=== PATIENT | female | born 1990 | race American Indian/Alaskan Native ===

== ENCOUNTER 2019-03-31 14:36 | Emergency (ER) | payer SELFPAY ==
--- NOTE | 2019-03-31 14:50 | Emergency Department Report ---
Blank Doc - Documentation Documentation: This is a 28-year-old female that presents with acute on chronic intermittent headache x4 days. This initial assessment/diagnostic orders/clinical plan/treatment(s) is/are subject to change based on patient's health status, clinical progression and re- assessment by fellow clinical providers in the ED. Further treatment and workup at subsequent clinical providers discretion. Patient/guardians urged not to elope from the ED as their condition may be serious if not clinically assessed and managed. Initial orders include: 1- Patient sent to [facility] for further evaluation and treatment
[2019-03-31] MEDS ORDERED: REGLAN PO ONE (16:59)
[2019-03-31] MEDS ORDERED: TORADOL IM ONE (16:59)
[2019-03-31] MEDS ORDERED: BENADRYL PO ONE (16:59)
[2019-03-31 17:43] LABS: HCG Qualitative,Urine Positive (Negative)
--- NOTE | 2019-03-31 18:09 | Emergency Department Report ---
ED Headache HPI - General Chief Complaint: Headache Stated Complaint: DIZZINESS/HEADACHE/STOMACH CRAMPING Time Seen by Provider: 03/31/19 14:49 - History of Present Illness Initial Comments: Patient is a 28-year-old female who presents to the emergency room with complaints of a right, frontal headache that began 4 days ago. She has associated nausea and one episode of emesis. She has a past medical history of migraines and states this feels similar to her previous migraines. She states she's been taking Excedrin which resolves her headache for a couple of hours and then it returns. She denies any vision changes, numbness, weakness. States she was previously seeing a neurologist when she lived in a different state for her headaches. She denies any other past medical history. Allergies/Adverse Reactions: Allergies No Known Allergies Allergy (Unverified 03/31/19 14:38) ED Review of Systems ROS: Stated complaint: DIZZINESS/HEADACHE/STOMACH CRAMPING Other details as noted in HPI Comment: All other systems reviewed and negative ED Past Medical Hx - Past Medical History Previous Medical History?: Yes Additional medical history: Migraine - Surgical History Past Surgical History?: Yes Additional Surgical History: - Social History Smoking Status: Never Smoker Substance Use Type: None ED Physical Exam - General Limitations: No Limitations General appearance: alert, in no apparent distress - Head Head exam: Present: atraumatic, normocephalic - Eye Eye exam: Present: normal appearance, PERRL - ENT ENT exam: Present: mucous membranes moist - Neck Neck exam: Present: normal inspection, full ROM. Absent: tenderness, meningismus - Respiratory Respiratory exam: Present: normal lung sounds bilaterally. Absent: respiratory distress, wheezes, rales, rhonchi, stridor, chest wall tenderness, accessory m uscle use, decreased breath sounds, prolonged expiratory - Cardiovascular Cardiovascular Exam: Present: regular rate, normal rhythm, normal heart sounds. Absent: systolic murmur, diastolic murmur, rubs, gallop - GI/Abdominal GI/Abdominal exam: Present: soft. Absent: distended, tenderness, guarding, rebound, rigid - Neurological Exam Neurological exam: Present: alert, oriented X3, CN II-XII intact, normal gait. Absent: motor sensory deficit - Psychiatric Psychiatric exam: Present: normal affect, normal mood - Skin Skin exam: Present: warm, dry, intact ED Course Vital Signs 03/31/19 03/31/19 03/31/19 14:49 17:22 18:37 Temperature 98.4 F Pulse Rate 77 71 Respiratory 16 15 18 Rate Blood Pressure 112/66 Blood Pressure 102/64 [Right] O2 Sat by Pulse 100 100 Oximetry ED Medical Decision Making - Lab Data Lab Results 03/31/19 Range/Units 17:25 Urine HCG, Qual Positive A (Negative) - Medical Decision Making Patient is a 28-year-old female who presents to the emergency room with complain ts of a right, frontal headache that began 4 days ago. She has associated nausea and one episode of emesis. She has a past medical history of migraines and states this feels similar to her previous migraines. She states she's been taking Excedrin which resolves her headache for a couple of hours and then it returns. She denies any vision changes, numbness, weakness. States she was previously seeing a neurologist when she lived in a different state for her headaches. She denies any other past medical history. examination is normal, no neuro deficits, no neck stiffness, no meningeal signs, EOMI, PERRL. Ordered medications for patient's headache. Prior to giving medications patient told nurse that she doesn't know if she is or not. Urine was ordered and it is positive. pt was only given Reglan and Benadryl due to positive test. Went to the room to tell patient she was and offered US, she declined and states she made an appt with her [employer] and would like to follow up with them. her MAJANO has resolved s/p medications. advised pt that for future HAs she could take tylenol due to it being category B. advised to please follow up with your primary care doctor in the next 2-3 days. Please follow up with [employer] in the next 2-3 days. please begin to take vitamin [id number]. May take Tylenol for headache. Drink plenty of water. Return to the emergency room for any new or worsening symptoms. Critical care attestation.: If time is entered above; I have spent that time in minutes in the direct care of this critically ill patient, excluding procedure time. ED Disposition Clinical Impression: Headache Qualifiers: Headache type: unspecified Headache chronicity pattern: acute headache Intractability: not intractable Qualified Code(s): R51 - Headache Qualifiers: Weeks of gestation: unspecified Qualified Code(s): Z34.90 - Encounter for supervision of normal , unspecified, unspecified trimester Disposition: DC-01 TO HOME OR SELFCARE Is pt being admited?: No Does the pt Need Aspirin: No Condition: Stable Instructions: (ED), Migraine Headache (ED) Additional Instructions: Please follow up with your primary care doctor in the next 2-3 days. Please follow up with [employer] in the next 2-3 days. please begin to take vitamin [id number]. May take Tylenol for headache. Drink plenty of water. Return to the emergency room for any new or worsening symptoms. Referrals: SHAKEEL CHAUDHARY MD [Primary Care Provider] - 2-3 Days CARMELINA BERMUDEZ MD [Staff Physician] - 2-3 Days Time of Disposition: 18:27 Print Language: THAI
[2019-03-31 18:38] VITALS: BP 102/64
== END 2019-03-31 18:38 | disposition home or self-care (01) ==
LOC: ED 14:36
DX: G43.909 Migraine, unspecified, not intractable, without status migrainosus (principal); Z33.1 Pregnant state, incidental
CPT/HCPCS: 81025; 99283; J1885

== ENCOUNTER 2019-06-30 19:50 | Emergency (ER) | payer MEDICAID ==
[2019-06-30] MEDS ORDERED: ONDANSETRON 4 MG ODT TAB PO ONE (20:35)
[2019-06-30] MEDS ORDERED: ONDANSETRON 4 MG ODT TAB ONE (20:36)
--- NOTE | 2019-06-30 20:38 | Event Note ---
ED Screening Note Date of service: 06/30/19 Time: 20:33 ED Screening Note: 28 y o female presents to ed cc of hurtado, cp, dizziness x 1 day states 2 episodes of vomitting and nausea rates headache worse it has ever been. hx of migraine hurtado This initial assessment/diagnostic orders/clinical plan/treatment(s) is/are subject to change based on patients health status, clinical progression and re- assessment by fellow clinical providers in the ED. Further treatment and workup at subsequent clinical providers discretion. Patient/guardian urged not to elope from the ED as their condition may be serious if not clinically assessed and managed. Initial orders include: zofran in triage labs ua ct?
[2019-06-30 20:52] LABS: Basophils # (Auto) 0.1 K/mm3 (0.0-0.1); Basophils % (Auto) 0.8 % (0.0-1.8); Eosinophils # (Auto) 0.4 K/mm3 (0.0-0.4); Eosinophils % (Auto) 4.2 % (0.0-4.3); Hematocrit 36.9 % (30.3-42.9); Hemoglobin 12.9 gm/dl (10.1-14.3); Lymphocytes # (Auto) 3.9 K/mm3 (1.2-5.4); Lymphocytes % (Auto) 39.8 % (13.4-35.0); Mean Corpuscular HGB Conc 35 % (30-34); Mean Corpuscular Volume 89 fl (79-97); Monocytes # (Auto) 0.6 K/mm3 (0.0-0.8); Monocytes % (Auto) 6.2 % (0.0-7.3); Platelet Count 264 K/mm3 (140-440); Red Blood Count 4.16 M/mm3 (3.65-5.03); Red Cell Distribution Width 12.7 % (13.2-15.2)
[2019-06-30 21:03] LABS: INR 0.91 (0.87-1.13); Partial Thromboplastin Time 31.6 Sec. (24.2-36.6)
[2019-06-30 21:20] LABS: Alanine Aminotransferase 11 units/L (7-56); Albumin 4.6 g/dL (3.9-5); BUN/Creatinine Ratio 16; Blood Urea Nitrogen 11 mg/dL (7-17); Calcium 9.1 mg/dL (8.4-10.2); Hemolysis Index 1
[2019-06-30] MEDS ORDERED: SUMAtriptan SUCCINATE 6 MG/0.5 ML INJ SUB-Q ONE (22:54)
[2019-06-30] MEDS ORDERED: HYDROcodone/ACETAMINOPHEN 5-325 MG TAB PO ONE (22:54)
--- NOTE | 2019-06-30 22:56 | XRay Report ---
CHEST 2 VIEWS 2134 INDICATION / CLINICAL INFORMATION: Chest Pain COMPARISON: None available. FINDINGS: SUPPORT DEVICES: None. HEART / MEDIASTINUM: No significant abnormality. LUNGS / PLEURA: No significant pulmonary or pleural abnormality. No pneumothorax. ADDITIONAL FINDINGS: No significant additional findings. IMPRESSION: No significant acute abnormality Signer Name: Willy Clark MD Signed: 06/30/2019 10:52 PM Workstation Name: [id number]
[2019-06-30 23:05] VITALS: BP 132/98
--- NOTE | 2019-06-30 23:09 | Emergency Department Report ---
ED Headache HPI - General Chief Complaint: Chest Pain Stated Complaint: MIGRAINE/DIZZY Time Seen by Provider: 06/30/19 20:32 Source: patient, family, RN notes reviewed, old records Exam Limitations: no limitations - History of Present Illness Initial Comments: Millicent is a 28-year-old female with a 3 year history of migraine headaches. She recently moved to [place] in December. In her previous hometown, she was followed by neurologist. She was recommended to have MRI 1 year ago. However she developed . The headache evaluation was placed on hold. She has had several ED AND urgent care visits for headache. She normally receives a shot for in order to address the pain. For the past 2 weeks she has had constant right frontal temporal headache worse in the morning. She had one episode of emesis. She noted several seconds of squeezing chest pain. She has been taking Excedrin. She denies shortness of breath or leg pain. She was evaluated in urgent care one month ago for headache. Similar headache pattern was documented on ED encounter March of this year. Timing/Duration: other (2 weeks) Quality: moderate, throbbing Head Injury Location: frontal, temporal Recent Head Trauma: frequent headaches, chronic headaches Associated Symptoms: other (chest pain) Allergies/Adverse Reactions: Allergies No Known Allergies Allergy (Verified 06/30/19 20:36) Home Medications: Ambulatory Orders Promethazine [Phenergan] 25 mg PO Q6HR PRN #10 tab 06/30/19 SUMAtriptan SUCCINATE [Imitrex] 50 mg PO BID PRN #10 tab 06/30/19 ED Review of Systems ROS: Stated complaint: MIGRAINE/DIZZY Other details as noted in HPI Comment: All other systems reviewed and negative Constitutional: denies: diaphoresis, fever, malaise Respiratory: denies: cough Cardiovascular: chest pain, palpitations Neurological: headache ED Past Medical Hx - Past Medical History Previous Medical History?: No Additional medical history: Migraine - Surgical History Past Surgical History?: Yes Additional Surgical History: - Social History Smoking Status: Never Smoker Substance Use Type: None - Medications Home Medications: Home Medications Medication Instructions Recorded Confirmed Last Taken Type Promethazine [Phenergan] 25 mg PO Q6HR PRN #10 tab 06/30/19 Unknown Rx SUMAtriptan SUCCINATE [Imitrex] 50 mg PO BID PRN #10 tab 06/30/19 Unknown Rx ED Physical Exam - General Limitations: No Limitations General appearance: alert, in no apparent distress, other (appears comfortable, smiling, reading smartphone) - Head Head exam: Present: atraumatic, normocephalic - Eye Eye exam: Present: normal appearance - ENT ENT exam: Present: mucous membranes moist - Neck Neck exam: Present: normal inspection, full ROM. Absent: tenderness, meningismus - Respiratory Respiratory exam: Present: normal lung sounds bilaterally. Absent: respiratory distress, wheezes, rales, rhonchi - Cardiovascular Cardiovascular Exam: Present: regular rate, normal rhythm, normal heart sounds. Absent: systolic murmur, diastolic murmur, rubs, gallop - GI/Abdominal GI/Abdominal exam: Present: soft, normal bowel sounds. Absent: distended, tenderness, guarding, rebound - Extremities Exam Extremities exam: Present: normal inspection - Neurological Exam Neurological exam: Present: alert, oriented X3 - Psychiatric Psychiatric exam: Present: normal affect, normal mood - Skin Skin exam: Present: warm, dry, intact, normal color. Absent: rash ED Course Vital Signs 06/30/19 06/30/19 06/30/19 20:28 22:16 22:21 Temperature 98.2 F 98 F Pulse Rate 65 64 Respiratory 18 19 Rate Blood Pressure 116/69 123/78 O2 Sat by Pulse 99 100 Oximetry ED Medical Decision Making - Lab Data Result diagrams: 06/30/19 20:41 06/30/19 20:41 Laboratory Results - last 24 hr 06/30/19 06/30/19 06/30/19 20:41 20:41 20:41 WBC 9.9 RBC 4.16 Hgb 12.9 Hct 36.9 MCV 89 MCH 31 MCHC 35 H RDW 12.7 L Plt Count 264 Lymph % (Auto) 39.8 H [place] % (Auto) 6.2 Eos % (Auto) 4.2 Baso % (Auto) 0.8 Lymph # 3.9 [place] # 0.6 Eos # 0.4 Baso # 0.1 Seg Neutrophils % 49.0 Seg Neutrophils # 4.8 PT INR APTT Sodium 139 Potassium 3.7 Chloride 103.0 Carbon Dioxide 21 L Anion Gap 19 BUN 11 Creatinine 0.7 Estimated GFR > 60 BUN/Creatinine Ratio 16 Glucose 87 Calcium 9.1 Total Bilirubin 0.30 AST 14 ALT 11 Alkaline Phosphatase 47 Troponin T < 0.010 Total Protein 8.0 Albumin 4.6 Albumin/Globulin Ratio 1.4 HCG, Qual Negative 06/30/19 20:41 WBC RBC Hgb Hct MCV MCH MCHC RDW Plt Count Lymph % (Auto) [place] % (Auto) Eos % (Auto) Baso % (Auto) Lymph # [place] # Eos # Baso # Seg Neutrophils % Seg Neutrophils # PT 12.0 L INR 0.91 APTT 31.6 Sodium Potassium Chloride Carbon Dioxide Anion Gap BUN Creatinine Estimated GFR BUN/Creatinine Ratio Glucose Calcium Total Bilirubin AST ALT Alkaline Phosphatase Troponin T Total Protein Albumin Albumin/Globulin Ratio HCG, Qual - EKG Data EKG shows normal: sinus rhythm, axis, intervals, QRS complexes, ST-T waves Rate: normal - EKG Data Interpretation: normal EKG - Radiology Data Radiology results: report reviewed CXR: NAP 2 view according to radiology impression - Medical Decision Making Millicent is a 28 yo female with hx of headache for the past 3 years with previous neurologist. She has typical headache as documented in ED encounter 3 months ago. DDX: tumor, pseudotumor cerebri, I do not suspect dangerous headache such as ICH/SAH, meningitis, cavernous thrombosis. I strongly recommended evaluation by neurologist for other possible causes of headache beyond migraine. rx: imitrex, promethazine Critical care attestation.: If time is entered above; I have spent that time in minutes in the direct care of this critically ill patient, excluding procedure time. ED Disposition Clinical Impression: Recurrent headache Disposition: DC-01 TO HOME OR SELFCARE Is pt being admited?: No Does the pt Need Aspirin: No Condition: Stable Instructions: Acute Headache (ED) Additional Instructions: Please see neurologist next available appointment. Prescriptions: SUMAtriptan SUCCINATE [Imitrex] 50 mg PO BID PRN #10 tab PRN Reason: Headache Promethazine [Phenergan] 25 mg PO Q6HR PRN #10 tab PRN Reason: Nausea/headache Referrals: AKSHAT MITCHELL MD [Staff Physician] - 3-5 Days Forms: Work/School Release Form(ED)
== END 2019-06-30 23:41 | disposition home or self-care (01) ==
LOC: ED 19:50
DX: G43.909 Migraine, unspecified, not intractable, without status migrainosus (principal); Z79.899 Other long term (current) drug therapy
CPT/HCPCS: 36415; 71046; 80053; 84484; 84703; 85025; 85610; 85730; 93005; 93010; 96372; J3030; Q0162

== ENCOUNTER 2019-07-01 10:09 | Emergency (ER) | payer MEDICAID ==
--- NOTE | 2019-07-01 11:33 | Emergency Department Report ---
ED Headache HPI - General Chief Complaint: Headache Stated Complaint: MIGRAINE/DIZZINESS/LIGHT HEADED Time Seen by Provider: 07/01/19 11:02 Source: patient, RN notes reviewed Exam Limitations: no limitations - History of Present Illness Initial Comments: This is a 28-year-old after [place] female who presents to the emergency room with a migraine for 2 days. She states she was seen in the emergency room yesterday with the same symptoms. She was prescribed some medication but unable to feel that the pharmacy. Patient reports symptoms are worse than yesterday. She is currently experiencing frontal headache with nausea. She denies visual changes, cough, fever, shortness of breath, wheezing, chest pain, and vomiting. Timing/Duration: 24 hours Quality: severe Head Injury Location: frontal Recent Head Trauma: occasional headaches Modifying Factors: improves with: exposure to light Associated Symptoms: nausea/vomiting. denies: confusion, fatigue, facial pain, fever/chills, nasal congestion, sinus infection, stiff neck, vision changes Allergies/Adverse Reactions: Allergies No Known Allergies Allergy (Verified 06/30/19 20:36) Home Medications: Ambulatory Orders Promethazine [Phenergan] 25 mg PO Q6HR PRN #10 tab 06/30/19 SUMAtriptan SUCCINATE [Imitrex] 50 mg PO BID PRN #10 tab 06/30/19 Ibuprofen [Motrin 800 MG tab] 800 mg PO Q8HR PRN #20 tablet 07/01/19 ED Review of Systems ROS: Stated complaint: MIGRAINE/DIZZINESS/LIGHT HEADED Other details as noted in HPI Constitutional: denies: chills, fever ENT: denies: ear pain, throat pain Respiratory: denies: cough, shortness of breath, wheezing Cardiovascular: denies: chest pain, palpitations Gastrointestinal: nausea. denies: abdominal pain, vomiting, diarrhea Skin: denies: rash, lesions Neurological: headache. denies: weakness, paresthesias Psychiatric: denies: anxiety, depression ED Past Medical Hx - Past Medical History Additional medical history: Migraine - Surgical History Additional Surgical History: - Social History Smoking Status: Never Smoker Substance Use Type: None - Medications Home Medications: Home Medications Medication Instructions Recorded Confirmed Last Taken Type Promethazine [Phenergan] 25 mg PO Q6HR PRN #10 tab 06/30/19 Unknown Rx SUMAtriptan SUCCINATE [Imitrex] 50 mg PO BID PRN #10 tab 06/30/19 Unknown Rx Ibuprofen [Motrin 800 MG tab] 800 mg PO Q8HR PRN #20 tablet 07/01/19 Unknown Rx ED Physical Exam - General Limitations: No Limitations General appearance: alert, in no apparent distress - Eye Eye exam: Present: normal appearance - ENT ENT exam: Present: mucous membranes moist - Neck Neck exam: Present: normal inspection - Respiratory Respiratory exam: Present: normal lung sounds bilaterally. Absent: respiratory distress - Cardiovascular Cardiovascular Exam: Present: regular rate, normal rhythm. Absent: systolic murmur, diastolic murmur, rubs, gallop - GI/Abdominal GI/Abdominal exam: Present: soft, normal bowel sounds - Neurological Exam Neurological exam: Present: alert, oriented X3, normal gait - Psychiatric Psychiatric exam: Present: normal affect, normal mood - Skin Skin exam: Present: warm, dry, intact, normal color. Absent: rash ED Course Vital Signs 07/01/19 10:39 Temperature 98.3 F Pulse Rate 71 Respiratory 18 Rate Blood Pressure 99/66 O2 Sat by Pulse 98 Oximetry ED Medical Decision Making - Radiology Data Radiology results: report reviewed CT head/brain wo con INDICATION: Acute blurry vision, migraine headache. TECHNIQUE: Routine CT head without contrast. All CT scans at this location are performed using CT dose reduction for ALARA by means of automated exposure control. COMPARISON: None. FINDINGS: BRAIN / INTRACRANIAL CONTENTS: No acute hemorrhage, mass effect, midline shift, or hydrocephalus. No appreciable acute large territorial or lacunar infarct. No chronic infarct or focal atrophy. Normal brain volume and ventricular/sulcal size for age. ORBITS: No significant abnormality of visualized orbits. SINUSES / MASTOIDS: No significant abnormality of visualized sinuses and mastoid air cells. ADDITIONAL FINDINGS: None. IMPRESSION: 1. No acute intracranial abnormality. - Medical Decision Making This is a 28 y.o. male that presents with headache for 2 days. History of migraines. Patient is stable and was examined by me. CT of head obtained and dictated by radiologist with no acute findings. No signs of distress noted. Given toradol and zofran in ER. Instructed to fill the prescriptionss prescribed yesterday for migraines. Start ibuprofen for intermittent pain. No further questions noted by the patient. Discharged home in stable condition. Follow up with PCP in 24-72 hours. Critical care attestation.: If time is entered above; I have spent that time in minutes in the direct care of this critically ill patient, excluding procedure time. ED Disposition Clinical Impression: Recurrent headache Disposition: DC- TO HOME OR SELFCARE Is pt being admited?: No Does the pt Need Aspirin: No Condition: Stable Instructions: Migraine Headache (ED) Additional Instructions: Take medication at start of headache. Moderate caffeine intake. Eat at scheduled times or 3 meals a day with snacks. Follow up with primary care provider in 24-72 hours. Prescriptions: Ibuprofen [Motrin 800 MG tab] 800 mg PO Q8HR PRN #20 tablet PRN Reason: Pain , Severe (7-10) Referrals: BYRON DAWKINS MD [Staff Physician] - 3-5 Days [facility] [Outside] - 3-5 Days [facility] [Outside] - 3-[address] [facility] [Outside] - 3-5 Days Forms: Work/School Release Form(ED) Time of Disposition: 13:55
[2019-07-01] MEDS ORDERED: KETOROLAC 30 MG/1 ML INJ IM ONE (12:14)
[2019-07-01] MEDS ORDERED: ONDANSETRON 4 MG ODT TAB PO ONE (12:14)
--- NOTE | 2019-07-01 13:37 | Cat Scan Report ---
CT head/brain wo con INDICATION: Acute blurry vision, migraine headache. TECHNIQUE: Routine CT head without contrast. All CT scans at this location are performed using CT dos e reduction for ALARA by means of automated exposure control. COMPARISON: None. FINDINGS: BRAIN / INTRACRANIAL CONTENTS: No acute hemorrhage, mass effect, midline shift, or hydrocephalus. No appreciable acute large territorial or lacunar infarct. No chronic infarct or focal atrophy. Normal b rain volume and ventricular/sulcal size for age. ORBITS: No significant abnormality of visualized orbits. SINUSES / MASTOIDS: No significant abnormality of visualized sinuses and mastoid air cells. ADDITIONAL FINDINGS: None. IMPRESSION: 1. No acute intracranial abnormality. Signer Name: Matty Vera MD Signed: 07/01/2019 1:33 PM Workstation Name: [id number]
[2019-07-01 14:11] VITALS: BP 100/70
== END 2019-07-01 14:11 | disposition home or self-care (01) ==
LOC: ED 10:09
DX: G43.909 Migraine, unspecified, not intractable, without status migrainosus (principal); R11.2 Nausea with vomiting, unspecified; Z79.899 Other long term (current) drug therapy
CPT/HCPCS: 70450; 96372; 99283; J1885; Q0162